=== PATIENT | female | born 1990 | race American Indian/Alaskan Native ===

== ENCOUNTER 2017-01-15 22:37 | Emergency (ER) | payer MEDICAID, SELFPAY ==
[2017-01-16] MEDS ORDERED: Ketorolac 30 MG/ML SDV IVPUSH ONE (01:13)
[2017-01-16] MEDS ORDERED: Sodium Chloride 0.9% 1,000 ML IV SCH (01:15)
[2017-01-16 01:27] VITALS: BP 134/82
[2017-01-16] MEDS ORDERED: cefTRIAXone 1 GM Vial IM ONE (01:31)
[2017-01-16] MEDS ORDERED: methylPREDNISolone Sodium Succinate 125 MG/2 ML SDV IVPUSH ONE (01:34)
[2017-01-16] MEDS ORDERED: cefTRIAXone 1 GM in Sodium Chloride 0.9% 50 ML IV ONE (01:45)
--- NOTE | 2017-01-16 01:52 | EDM.PDOC ---
ED HPI GENERAL MEDICAL PROBLEM - General Chief Complaint: Fever Stated Complaint: MEDICAL VIA [facility] Time Seen by Provider: 01/16/17 00:28 Source of Information: Reports: Patient History Limitations: Reports: No Limitations - History of Present Illness INITIAL COMMENTS - FREE TEXT/NARRATIVE: This is a 26 year old female present to ER via ambulance for complaints of sore throat, fever, body aches for the past 24 hours. reports has frequent strep. Onset: Gradual Duration: Hour(s): (24) Location: Reports: Generalized, Other (sore throat) Quality: Reports: Ache, Burning Severity: Severe Improves with: Reports: None Worsens with: Reports: None Associated Symptoms: Reports: Fever/Chills, Other (body aches) Generalized Pain Score (Numeric/FACES): 8 - Related Data Allergies Allergy/AdvReac Type Severity Reaction Status Date / Time sertraline HCl [From Zoloft] AdvReac Vomiting Verified 01/16/17 00:43 Home Meds: Home Meds Amphetamine/Dextroamphetamine [Adderall XR] 30 mg PO DAILY 02/18/16 [History] clonazePAM [Clonazepam] 0.5 mg PO DAILY 02/18/16 [History] Gabapentin [Neurontin] 300 mg PO BID 08/02/16 [History] Past Medical History Respiratory History: Reports: Asthma, Bronchitis, Recurrent Genitourinary History: Reports: UTI, Recurrent 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: Musculoskeletal History: Reports: Other (See Below) Other Musculoskeletal History: scoliosis Neurological History: Reports: Migraines Psychiatric History: Reports: Anxiety, Depression Hematologic History: Reports: Anemia - Infectious Disease History Infectious Disease History: Reports: Chicken Pox - Past Surgical History GI Surgical History: Reports: Appendectomy, Cholecystectomy Female Surgical History: Reports: Section, Tubal Ligation Musculoskeletal Surgical History: Reports: Arthroscopic Knee Social & Family History - Family History Family Medical History: Unobtainable - Tobacco Use Smoking Status *Q: Never Smoker Second Hand Smoke Exposure: Yes - Caffeine Use Caffeine Use: Reports: Coffee, Soda - Alcohol Use Days Per Week of Alcohol Use: 1 Number of Drinks Per Day: 2 Total Drinks Per Week: 2 - Recreational Drug Use Recreational Drug Use: No - Living Situation & Occupation Occupation: Employed ED ROS ENT - Review of Systems Review Of Systems: See Below Constitutional: Reports: Fever, Chills, Malaise, Decreased Appetite HEENT: Reports: Throat Pain Respiratory: Reports: No Symptoms Cardiovascular: Reports: No Symptoms Endocrine: Reports: No Symptoms GI/Abdominal: Reports: No Symptoms : Reports: No Symptoms Musculoskeletal: Reports: Muscle Pain Skin: Reports: No Symptoms Neurological: Reports: No Symptoms Psychiatric: Reports: No Symptoms, Anxiety Hematologic/Lymphatic: Reports: No Symptoms Immunologic: Reports: No Symptoms ED EXAM, ENT - Physical Exam Exam: See Below Exam Limited By: No Limitations General Appearance: Alert, Anxious, Mild Distress (laying on her side on stretcher, tearful) Eye Exam: Bilateral Eye: Normal Inspection Ears: Normal External Exam, Normal Canal, Hearing Grossly Normal, Normal TMs Nose: Normal Inspection, Normal Mucousa, No Blood Mouth/Throat: Normal Gums, Normal Lips, Normal Teeth, Pharyngeal Erythema, Throat Pain, Tonsillar Erythema Neck: Normal Inspection, Supple, Non-Tender, Full Range of Motion Respiratory/Chest: No Respiratory Distress, Lungs Clear, Normal Breath Sounds, No Accessory Muscle Use, Chest Non-Tender Cardiovascular: Normal Peripheral Pulses, Regular Rate, Rhythm, No Edema, No Gallop, No JVD, No Murmur, No Rub GI/Abdominal: Normal Bowel Sounds, Soft, Non-Tender, No Organomegaly, No Distention, No Abnormal Bruit, No Mass (Female) Exam: Deferred Rectal (Female) Exam: Deferred Back: Normal Inspection, Full Range of Motion Extremities: Normal Inspection, Normal Range of Motion, Non-Tender, No Pedal Edema, Normal Capillary Refill Neurological: Alert, Oriented, No Motor/Sensory Deficits Psychiatric: Anxious, Flat Affect, Tearful Skin: Warm, Dry, Intact, Normal Color, No Rash Lymphatic: No Adenopathy Course - Vital Signs Last Recorded V/S: Last Vital Signs Temp 37.2 C 01/16/17 03:00 Pulse 88 01/16/17 01:26 Resp 16 01/16/17 01:26 BP 134/82 01/16/17 01:26 Pulse Ox 98 01/16/17 01:26 - Orders/Labs/Meds Orders: Active Orders 24 hr Category Date Time Status CULTURE STREP A CONFIRMATION [RM] Stat Lab 01/16/17 00:54 Results STREP SCRN A RAPID W CULT CONF [RM] Stat Lab 01/16/17 00:54 Results Labs: Laboratory Tests 01/16/17 01/16/17 Range/Units 00:54 00:54 Urine Color Yellow Urine Appearance Slightly cloudy Urine pH 7.0 (4.5-8.0) Ur Specific [place] 1.010 (1.008-1.030) Urine Protein Negative (NEGATIVE) mg/dL Urine Glucose (UA) Normal (NEGATIVE) mg/dL Urine Ketones 15 H (NEGATIVE) mg/dL Urine Occult Blood Negative (NEGATIVE) Urine Nitrite Negative (NEGATIVE) Urine Bilirubin Negative (NEGATIVE) Urine Urobilinogen Normal (NORMAL) mg/dL Ur Leukocyte Esterase Moderate (NEGATIVE) Urine RBC 5-10 H (0-5) Urine WBC 5-10 H (0-5) Ur Epithelial Cells Moderate Amorphous Sediment Not seen Urine Bacteria Moderate Urine Mucus Few Urine HCG, Qual Negative Meds: Medications Discontinued Medications Generic Name Dose Route Start Last Admin Trade Name Freq PRN Reason Stop Dose Admin Ceftriaxone Sodium 1 gm 01/16/17 01:31 Rocephin IM 01/16/17 01:32 ONETIME ONE Sodium Chloride 1,000 mls @ 999 mls/hr 01/16/17 01:15 01/16/17 01:21 Normal Saline IV 999 mls/hr ASDIRECTED ALEJANDRA Administration Ceftriaxone Sodium 1 gm/ 50 mls @ 100 mls/hr 01/16/17 01:45 01/16/17 02:04 Sodium Chloride IV 01/16/17 02:14 100 mls/hr ONETIME ONE Administration Ketorolac Tromethamine 30 mg 01/16/17 01:13 01/16/17 01:23 Toradol IVPUSH 01/16/17 01:14 30 mg ONETIME ONE Administration Methylprednisolone Sodium Succinate 125 mg 01/16/17 01:34 01/16/17 02:02 Solu-Medrol IVPUSH 01/16/17 01:35 125 mg ONETIME ONE Administration Departure - Departure Time of Disposition: 02:58 Disposition: Home, Self-Care 01 Condition: Good Clinical Impression: Dehydration, Tonsillitis Urinary tract infection Qualifiers: Urinary tract infection type: site unspecified Hematuria presence: with hematuria Qualified Code(s): N39.0 - Urinary tract infection, site not specified - Discharge Information Instructions: Tonsillitis, [id number] Referrals: PCP,None [Primary Care Provider] - Forms: ED Department Discharge Care Plan Goals: Tonsillitis -rapid strep negative, throat culture pending -oral steroids as directed for comfort Dehydration -given IV fluids -advised to keep well hydrated Bladder Infection -urine culture pending -Rocephin 1 gram IV -Keflex 500mg take one two times a day til gone Take medications as directed, return to Clinic or ER if has any nausea,vomiting,diarrhea, rash, fever not controlled with tylenol or motrin , if has any concerns.. - Problem List & Annotations (1) Dehydration SNOMED Code(s): 83299897 Code(s): E86.0 - DEHYDRATION Status: Acute Priority: High (2) Tonsillitis SNOMED Code(s): 99400622 Code(s): J03.90 - ACUTE TONSILLITIS, UNSPECIFIED Status: Acute Priority: Medium (3) Urinary tract infection SNOMED Code(s): 99815950 Code(s): N39.0 - URINARY TRACT INFECTION, SITE NOT SPECIFIED Status: Acute Priority: Medium Qualifiers: Urinary tract infection type: site unspecified Hematuria presence: with hematuria Qualified Code(s): N39.0 - Urinary tract infection, site not specified; R31.9 - Hematuria, unspecified - Problem List Review Problem List Initiated/Reviewed/Updated: Yes - My Orders Last 24 Hours: My Active Orders 01/16/17 00:54 CULTURE STREP A CONFIRMATION [RM] Stat STREP SCRN A RAPID W CULT CONF [] Stat - Assessment/Plan Last 24 Hours: My Active Orders 01/16/17 00:54 CULTURE STREP A CONFIRMATION [RM] Stat STREP SCRN A RAPID W CULT CONF [] Stat Plan: Tonsillitis -rapid strep negative, throat culture pending -oral steroids as directed for comfort Dehydration -given IV fluids -advised to keep well hydrated Bladder Infection -urine culture pending -Rocephin 1 gram IV -Keflex 500mg take one two times a day til gone Take medications as directed, return to Clinic or ER if has any nausea,vomiting,diarrhea, rash, fever not controlled with tylenol or motrin , if has any concerns..
== END 2017-01-16 02:58 | disposition home or self-care (01) ==
LOC: JP.ED 22:37
DX: N39.0 Urinary tract infection, site not specified (principal); J03.90 Acute tonsillitis, unspecified; E86.0 Dehydration; G43.909 Migraine, unspecified, not intractable, without status migrainosus; F41.9 Anxiety disorder, unspecified; F32.9 Major depressive disorder, single episode, unspecified; J45.909 Unspecified asthma, uncomplicated; Z90.49 Acquired absence of other specified parts of digestive tract; Z88.8 Allergy status to other drugs, medicaments and biological substances; Z87.440 Personal history of urinary (tract) infections; Z79.899 Other long term (current) drug therapy; Z98.890 Other specified postprocedural states; Z86.2 Personal history of diseases of the blood and blood-forming organs and certain disorders involving the immune mechanism
CPT/HCPCS: 81001; 81025; 87081; 87430; 96365; 96372; 96375; 99284; J0696; J1885; J2930; J7040; J7050

== ENCOUNTER 2020-02-09 20:44 | Emergency (ER) | payer BC, MEDICAID ==
[2020-02-09 21:25] VITALS: BP 126/92; PULSE 85
[2020-02-09] MEDS ORDERED: Baclofen 10 MG Tab PO ONE (22:06)
[2020-02-09] MEDS ORDERED: Ketorolac 60 MG/2 ML SDV IM ONE (22:07)
--- NOTE | 2020-02-09 22:58 | EDM.PDOC ---
ED HPI GENERAL MEDICAL PROBLEM - General Chief Complaint: Neck Problem Stated Complaint: NECK PAIN Time Seen by Provider: 02/09/20 22:52 Source of Information: Reports: Patient History Limitations: Reports: No Limitations - History of Present Illness INITIAL COMMENTS - FREE TEXT/NARRATIVE: pt arrived having severe pain in the postterior cervical area. She is very tight and is uncomfortable with any exam. She has not fallen or had a recent injury. She has a long history of previous neck injuries. Onset: Gradual Duration: Day(s): Location: Reports: Head, Other (pt was seen at [facility] and was told she had occipital neuralgia. ) Quality: Reports: Sharp, Stabbing Associated Symptoms: Reports: Other (pt is having some dizziness with the tightness. 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 spinal decay Neurological History: Reports: Migraines Psychiatric History: Reports: Anxiety, Depression Hematologic History: Reports: Anemia - Infectious Disease History Infectious Disease History: Reports: Chicken Pox - Past Surgical History HEENT Surgical History: Reports: Tonsillectomy GI Surgical History: Reports: Appendectomy, Cholecystectomy Female Surgical History: Reports: Section, Endometrial Ablation, Tubal Ligation Musculoskeletal Surgical History: Reports: Arthroscopic Knee Social & Family History - Family History Family Medical History: Unobtainable - Tobacco Use Smoking Status *Q: Never Smoker Second Hand Smoke Exposure: Yes - Caffeine Use Caffeine Use: Reports: Coffee, Energy Drinks - Alcohol Use Days Per Week of Alcohol Use: 3 Number of Drinks Per Day: 3 Total Drinks Per Week: 9 - Recreational Drug Use Recreational Drug Use: Yes Drug Use in Last 12 Months: No Recreational Drug Type: Reports: Marijuana/Hashish - Living Situation & Occupation Occupation: Employed ED ROS GENERAL - Review of Systems Review Of Systems: See Below Constitutional: Reports: No Symptoms HEENT: Reports: No Symptoms Respiratory: Reports: No Symptoms Cardiovascular: Reports: No Symptoms Endocrine: Reports: No Symptoms GI/Abdominal: Reports: No Symptoms : Reports: No Symptoms Musculoskeletal: Reports: No Symptoms Skin: Reports: No Symptoms Neurological: Reports: Other (pain in the posterior cervical area. ) ED EXAM, UPPER BACK/NECK PAIN - Physical Exam Exam: See Below Text/Narrative:: pt arrived with severe pain in the posterior cervical area. Exam Limited By: No Limitations General Appearance: Alert, Anxious, Moderate Distress Ears Exam: Normal TMs Nose Exam: Normal Inspection Throat/Mouth Exam: Normal Inspection Head Exam: Other (pt has alot of muscle tightness and tenderness in the post cervical area. ) Neck Exam: Muscle Spasm, Tenderness, Other Cardiovascular/Respiratory: Regular Rate, Rhythm GI/Abdominal: Soft, Non-Tender (Female) Exam: Deferred Rectal (Female) Exam: Deferred Back Exam: Normal Inspection Extremities: Normal Inspection Neurologic: Alert Psychiatric: Anxious Course - Vital Signs Last Recorded V/S: Last Vital Signs Temp 36.8 C 02/09/20 21:29 Pulse 85 02/09/20 21:29 Resp 16 02/09/20 21:29 BP 126/92 H 02/09/20 21:29 Pulse Ox 97 02/09/20 21:29 - Orders/Labs/Meds Orders: Active Orders 24 hr Category Date Time Status Cervical Spine Min 4V [CR] Stat Exams 02/09/20 22:07 Ordered Meds: Medications Discontinued Medications Generic Name Dose Route Start Last Admin Trade Name Frank PRN Reason Stop Dose Admin Baclofen 10 mg 02/09/20 22:06 02/09/20 22:15 Lioresal PO 02/09/20 22:07 10 mg ONETIME ONE Administration Ketorolac Tromethamine 60 mg 02/09/20 22:07 02/09/20 22:16 Toradol IM 02/09/20 22:08 60 mg ONETIME ONE Administration - Re-Assessments/Exams Free Text/Narrative Re-Assessment/Exam: 02/09/20 22:59 cervical spine seres looked good.There was definite muscle straighteningrpt was given torodol and baclofen which gave slight relief. she was given dilaudid .5 im. Departure - Departure Time of Disposition: 23:07 Disposition: Home, Self-Care 01 Condition: Fair Clinical Impression: Cervical paraspinal muscle spasm, Occipital neuralgia - Discharge Information Referrals: Paula Ware [employer]IE ENGINEER [Primary Care Provider] - Care Plan Goals: moist warm packs alternating with cool packs to the back of her neck, stretching exercises, appt with regular provider. Schedule physical therapy in [place]. baclofen 10 mg tid, tramodol 50 mg q6h prn for pain. Sepsis Event Note (ED) - Evaluation Sepsis Screening Result: No Definite Risk - Focused Exam Vital Signs: Vital Signs Temp Pulse Resp BP Pulse Ox 02/09/20 21:29 36.8 C 85 16 126/92 H 97 02/09/20 21:21 36.8 C 85 16 126/92 H 97 - My Orders Last 24 Hours: My Active Orders 02/09/20 22:07 Cervical Spine Min 4V [CR] Stat - Assessment/Plan Last 24 Hours: My Active Orders 02/09/20 22:07 Cervical Spine Min 4V [CR] Stat
[2020-02-09] MEDS ORDERED: HYDROmorphone 0.5 MG/0.5 ML Syringe IM ONE (23:06)
--- NOTE | 2020-02-11 09:33 | CR ---
Cervical Spine 2V or 3V CLINICAL HISTORY: Severe pain base of skull FINDINGS: The vertebral body heights are intact. The disc spaces are well-maintained. Alignment is maintained. Prevertebral soft tissues have a normal appearance.. There is no significant spondylosis. IMPRESSION: Negative
== END 2020-02-09 23:26 | disposition home or self-care (01) ==
LOC: JP.ED 20:44
DX: M62.838 Other muscle spasm (principal); M54.81 Occipital neuralgia; J45.909 Unspecified asthma, uncomplicated; M41.9 Scoliosis, unspecified; F41.9 Anxiety disorder, unspecified; Z77.22 Contact with and (suspected) exposure to environmental tobacco smoke (acute) (chronic); Z88.8 Allergy status to other drugs, medicaments and biological substances
CPT/HCPCS: 72040; 96372; 99283; A9270; J1170; J1885

== ENCOUNTER 2024-03-28 03:32 | Emergency (ER) | payer BC, MEDICAID ==
[2024-03-28 04:00] LABS: BASOPHILS ABSOLUTE AUTO 0.08 K/uL (0.00-0.10); BASOPHILS PERCENT AUTO 0.8 % (0.1-1.3); EOSINOPHILS ABSOLUTE AUTO 0.07 K/uL (0.00-0.40); EOSINOPHILS PERCENT AUTO 0.7 % (0.0-5.4); HEMATOCRIT 40.7 % (34.3-46.0); HEMOGLOBIN 14.6 g/dL (11.2-15.5); IMMATURE GRAN PERCENT AUTO 0.2 % (0.0-0.7); LYMPHOCYTES PERCENT AUTO 30.2 % (11.4-47.7); MEAN CORPUSCULAR HGB CONC 35.9 g/dL (31.6-35.5); MEAN CORPUSCULAR VOLUME 89.3 fL (81.4-99.0); MONOCYTES PERCENT AUTO 7.8 % (3.3-12.6); NEUTROPHILS ABSOLUTE AUTO 6.19 K/uL (1.0-7.6); NEUTROPHILS PERCENT AUTO 60.3 % (40.0-78.1); PLATELET COUNT,PLT 332 K/uL (130-375); RED BLOOD CELL COUNT 4.56 M/uL (3.77-5.24); WHITE BLOOD CELL COUNT,WBC 10.3 K/uL (3.2-11.0)
[2024-03-28] MEDS: Prochlorperazine 10 MG/2 ML SDV IVPUSH ONE (04:00)
[2024-03-28 04:01] LABS: IMMATURE GRAN ABSOLUTE AUTO 0.02 K/uL (0.00-0.23)
[2024-03-28 04:02] VITALS: PULSE 95
[2024-03-28] MEDS: Sodium Chloride 0.9% 1,000 ML IV SCH (04:02)
[2024-03-28] MEDS: Ketorolac 30 MG/ML SDV IVPUSH ONE (04:02)
[2024-03-28 04:10] LABS: ANION GAP 11.2 mmol/L (5.0-14.0); CALCIUM 9.5 mg/dL (8.5-10.1); CREATININE 0.7 mg/dL (0.6-1.0); EST CRCL DRUG DOSING (CG) 89.56 mL/min; MAGNESIUM 1.5 mg/dL (1.8-2.4)
[2024-03-28] MEDS: Magnesium Oxide 400 MG Tab PO ONE (04:59)
[2024-03-28 05:05] VITALS: BP 142/99
== END 2024-03-28 05:12 ==
LOC: JP.ED 03:32
DX: G43.909 Migraine, unspecified, not intractable, without status migrainosus (principal); Z79.899 Other long term (current) drug therapy; Z88.8 Allergy status to other drugs, medicaments and biological substances
CPT/HCPCS: 36415; 80048; 80307; 83735; 85025; 96361; 96374; 96375; 99284; A9270; J0780; J1885; J7030